=== PATIENT | female | born 1975 | race Caucasian/White ===

== ENCOUNTER → 2017-03-24 | Outpatient (CLI) | payer BC ==
[~2017-03-24] MED LIST: DIAZ-165 PO; Spironolactone PO; minocycline PO; naproxen PO
--- NOTE | 2017-03-24 15:28 | MAMMOGRAPHY REPORT ---
UNILATERAL RIGHT DIGITAL SCREENING MAMMOGRAM TOMOSYNTHESIS WITH CAD: 03/24/2017 CLINICAL HISTORY: Asymptomatic. Personal history of breast cancer. TECHNIQUE: CC and MLO views of the right breast with and without implant displacement views were obt ained. Current study was also evaluated with a Computer Aided Detection (CAD) system. COMPARISON: Comparison is made to exams dated: 03/21/2016 ultrasound, 03/21/2016 mammogram, 4 ultrasound biopsy, 11/07/2013 ultrasound, 11/07/2013 mammogram, and 11/10/2013 mammogram - [facility]. BREAST COMPOSITION: The tissue of the right breast is heterogeneously dense, which may obscure small masses. FINDINGS: A right-sided silicone implant remains in place. There are benign oil cysts throughout the superior right breast. No new suspicious mass, architectural distortion or cluster of suspicious mi crocalcifications is seen. IMPRESSION: ACR BI-RADS CATEGORY 1: NEGATIVE There is no mammographic evidence of malignancy. A 1 year screening mammogram is recommended. The pa tient will receive written notification of the results. Approximately 10% of breast cancers are not detected with mammography. A negative mammographic report should not delay biopsy if a clinically suggestive mass is present. Joselyn Palmer M.D. ay/:03/24/2017 10:54:18 Natural Sciences Manager: Minerva [email or web address])(Archie), [facility] letter sent: Normal 1/2 BI-RADS Code: ACR BI-RADS Category 1: Negative
== END | disposition home or self-care (01) ==
LOC: C.MAMM 08:39
PROVIDERS: ATTEND Nurse Practitioner Family
DX: Z12.31 Encounter for screening mammogram for malignant neoplasm of breast (principal); Z85.3 Personal history of malignant neoplasm of breast; Z90.12 Acquired absence of left breast and nipple; Z98.82 Breast implant status